=== PATIENT | male | born 1990 | race Hispanic/Latino ===

== ENCOUNTER 2018-06-07 19:14 | Emergency (ER) | payer OTHER ==
[2018-06-07] MEDS ORDERED: KETOROLAC TROMETHAMINE 60 MG/2 ML VIAL ONE (19:43)
== END 2018-06-07 21:25 | disposition home or self-care (01) ==
LOC: EDH 19:14
DX: S90.32XA Contusion of left foot, initial encounter (principal); S90.31XA Contusion of right foot, initial encounter; W13.2XXA Fall from, out of or through roof, initial encounter; Y93.89 Activity, other specified; Y92.89 Other specified places as the place of occurrence of the external cause; Y99.8 Other external cause status
CPT/HCPCS: 73650; 96372; 99283; J1885

== ENCOUNTER 2018-09-27 06:08 | Emergency (ER) | payer OTHER | END 2018-09-27 06:45 | disposition home or self-care (01) | LOC: EDH 06:08 | DX: Z02.83 Encounter for blood-alcohol and blood-drug test (principal) ==